=== PATIENT | female | born 1965 | race Caucasian/White ===

== ENCOUNTER → 2024-04-03 | Outpatient (CLI) | payer BC, SELFPAY ==
[2024-04-03 16:29] LABS: Alanine Aminotransferase 38 U/L (10-49); Albumin, Serum 4.7 gm/dL (3.5-5.0); Albumin/Globulin Ratio 1.9 (1.2-2.2); Alkaline Phosphatase 131 U/L (46-116); Anion Gap 7 (7-16); Aspartate Amino Transferase 41 U/L (0-34); BUN/Creatinine Ratio 28 Ratio (12-20); Bilirubin,Total 0.5 mg/dL (0.3-1.2); Blood Urea Nitrogen 22 mg/dL (9-23); Calcium 9.9 mg/dL (8.3-10.6); Calcium (Corrected) 9.9 mg/dL (8.5-10.1); Carbon Dioxide 28.4 mMol/L (20.0-31.0); Cardiac Risk Estimate 4.5 RATIO (3.7-5.6); Chloride 103 mMol/L (98-107); Cholesterol 157 mg/dL (132-200); Creatinine (Component) 0.8 mg/dL (0.6-1.3); Globulin 2.5 gm/dL (2.3-3.5); Glucose 124 mg/dL (74-106); HDL Cholesterol 35 mg/dL (40-60); LDL Cholesterol,Calculated 67 mg/dL (0-130); Osmolality,Calculated 279 (275-295); Potassium 4.2 mMol/L (3.4-5.1); Sodium 138 mMol/L (136-145); Total Protein 7.2 gm/dL (5.7-8.2); Triglycerides 274 mg/dL (30-150); eGFR > 60 See Note
[2024-04-03 16:36] LABS: Glucose Estimated Average 166 mg/dL (80-131); Hemoglobin A1C 7.4 % Hgb (4.8-6.0)
[2024-04-03 16:49] LABS: Creatinine MALB Rnd Ur 89 mg/dL (30-125); Microalbumin, Random Urine < 3 mg/L (0-300)
== END | disposition home or self-care (01) ==
LOC: COPL 14:02
PROVIDERS: PCP Specialist; Referring Provider Specialist; Visit Provider Specialist
DX: E11.65 Type 2 diabetes mellitus with hyperglycemia (principal); E78.2 Mixed hyperlipidemia
CPT/HCPCS: 36415; 80053; 80061; 82043; 82570; 83036

== ENCOUNTER → 2024-08-21 | Outpatient (CLI) | payer BC, SELFPAY ==
[2024-08-21 13:34] LABS: Glucose Estimated Average 163 mg/dL (80-131); Hemoglobin A1C 7.3 % Hgb (4.8-6.0)
[2024-08-21 13:39] LABS: Creatinine MALB Rnd Ur 91 mg/dL (30-125); Microalbumin Creat Ratio 8 mg/gCrea (<30); Microalbumin, Random Urine 7 mg/L (0-300)
[2024-08-21 13:42] LABS: Alanine Aminotransferase 39 U/L (10-49); Albumin, Serum 4.8 gm/dL (3.5-5.0); Albumin/Globulin Ratio 1.8 (1.2-2.2); Alkaline Phosphatase 121 U/L (46-116); Anion Gap 9 (7-16); Aspartate Amino Transferase 32 U/L (0-34); BUN/Creatinine Ratio 29 Ratio (12-20); Bilirubin,Total 0.6 mg/dL (0.3-1.2); Blood Urea Nitrogen 23 mg/dL (9-23); Carbon Dioxide 28.1 mMol/L (20.0-31.0); Cardiac Risk Estimate 4.2 RATIO (3.7-5.6); Chloride 106 mMol/L (98-107); Cholesterol 185 mg/dL (132-200); Creatinine (Component) 0.8 mg/dL (0.6-1.3); Globulin 2.7 gm/dL (2.3-3.5); Glucose 127 mg/dL (74-106); HDL Cholesterol 44 mg/dL (40-60); LDL Cholesterol,Calculated 112 mg/dL (0-130); Osmolality,Calculated 290 (275-295); Potassium 4.5 mMol/L (3.4-5.1); Sodium 143 mMol/L (136-145); Thyroid Stimulating Hormone 11.74 uIU/mL (0.55-4.78); Total Protein 7.5 gm/dL (5.7-8.2); Triglycerides 144 mg/dL (30-150); eGFR > 60 See Note
[2024-08-21 16:01] LABS: RA Screen Negative (Negative)
== END | disposition home or self-care (01) ==
LOC: COPL 12:03
PROVIDERS: PCP Specialist; Referring Provider Specialist; Visit Provider Specialist
DX: E11.65 Type 2 diabetes mellitus with hyperglycemia (principal); E78.2 Mixed hyperlipidemia; T78.3XXS Angioneurotic edema, sequela
CPT/HCPCS: 36415; 80053; 80061; 82043; 82570; 83036; 84443; 86038; 86430

== ENCOUNTER → 2024-09-16 | Outpatient (CLI) | payer BC, SELFPAY ==
--- NOTE | 2024-09-16 15:30 | XR_ITS ---
Examination: Thyroid sonography complete TECHNIQUE: Grayscale sonographic images thyroid lobes Exam date and time: September 16, 2024 1532 hours INDICATIONS: Elevated TSH on laboratory examination August 21, 2024 FINDINGS: Right thyroid 4.7 cm Lower pole nodule 13 x 8 x 9 mm Left thyroid 4.2 cm Midpole nodule 6 x 4 x 6 mm, 13 x 9 x 10 mm Lower pole nodule 15 x 12 x 15 mm IMPRESSION: Bilateral thyroid nodules as above Consider ultrasound-guided fine-needle aspiration of the largest nodules in the lower right and left thyroid lobes
--- NOTE | 2024-09-16 15:43 | XR_ITS ---
Examination: Lumbar spine, 5 views Technique: Lumbar spine AP, lateral, coned lateral lower lumbar spine, bilateral obliques 5 views Exam date and time: September 16, 2024 at 1558 hours Comparison March 01, 2017 INDICATIONS: Low back pain radiating down the left leg beginning one month ago. FINDINGS: Mild diffuse facet arthropathy No lumbar fracture Mild lumbar spondylosis Mild disc narrowing L4-L5, L5-S1 IMPRESSION: Early degenerative disc disease L4-L5, L5-S1
[2024-09-16 17:46] LABS: Thyroid Stimulating Hormone 11.62 uIU/mL (0.55-4.78)
[2024-09-23 13:48] LABS: Thyroglobulin Antibodies 21 IU/mL (< OR = 1)
[2024-09-24 06:41] LABS: ANA Pattern NUCLEAR, HOMOGENEOUS; ANA Pattern NUCLEAR, NUCLEOLAR; ANA Pattern NUCLEAR, SPECKLED; ANA Screen, IFA POSITIVE (NEGATIVE); ANA Titer 1:40 titer; Thyroglobulin 42.1 ng/mL
== END | disposition home or self-care (01) ==
LOC: CDIM 15:12 → COPL 16:12
PROVIDERS: PCP Specialist; Referring Provider Specialist; Visit Provider Radiology Diagnostic Radiology
DX: M51.379 Other intervertebral disc degeneration, lumbosacral region without mention of lumbar back pain or lower extremity pain (principal); E04.1 Nontoxic single thyroid nodule; E03.8 Other specified hypothyroidism; E04.2 Nontoxic multinodular goiter
CPT/HCPCS: 36415; 72110; 76536; 84432; 84439; 84443; 84481; 86038; 86800

== ENCOUNTER → 2024-11-08 | Outpatient (CLI) | payer BC, SELFPAY ==
[2024-11-08 08:39] LABS: Free T4 (Free Thyroxine) 1.07 ng/dL (0.89-1.76)
== END | disposition home or self-care (01) ==
PROVIDERS: PCP Specialist; Referring Provider Specialist; Visit Provider Specialist
DX: E03.8 Other specified hypothyroidism (principal)
CPT/HCPCS: 36415; 84439; 84443; 84481

== ENCOUNTER → 2024-12-09 | Outpatient (CLI) | payer BC, SELFPAY ==
--- NOTE | 2024-12-09 07:37 | XR_ITS ---
Examination: Abdomen sonogram, complete Date and time of exam: December 01, 2024 0744 hours INDICATIONS: Abdominal distention beginning 3 months ago. Technique: Multiple real-time grayscale transabdominal sonographic images of the abdomen have been obtained. Findings: Normal gallbladder. Normal common bile duct 0.2 cm Pancreatic head 2.3 cm Aorta not enlarged. Liver 19.2 cm irregular contour, probable focal fatty sparing versus true mass adjacent to the gallbladder 40 mm Normal hepatopedal portal venous flow Patent IVC Right kidney 10.6 cm renal cortex 1.3 cm Left kidney 11.0 cm renal cortex 1.9 cm Spleen 10.3 cm IMPRESSION: 3.9 x 2.6 x 4.0 cm liver lesion, recommend CT abdomen pre and post contrast follow-up
[2024-12-09 08:32] LABS: Basophils # (Auto) 0.0 Thou/mm3 (0.0-0.2); Basophils % (Auto) 1 % (0-2.5); Eosinophils # (Auto) 0.2 Thou/mm3 (0.0-0.5); Eosinophils % (Auto) 3 % (0-10); Hematocrit 45.6 % (36.0-46.0); Hemoglobin 14.9 g/dL (12.0-16.0); Immature Granulocytes Auto 0.02 Thou/mm3 (0.00-0.00); Lymphocytes # (Auto) 2.3 Thou/mm3 (1.0-4.8); Lymphocytes % (Auto) 42 % (10-50); Mean Corpuscular HGB Conc 32.7 g/dl (31.0-37.0); Mean Corpuscular Hemoglobin 27.5 pg (25.0-35.0); Mean Corpuscular Volume 84 fL (80-100); Monocytes # (Auto) 0.6 Thou/mm3 (0.0-0.8); Monocytes % (Auto) 11 % (0-12); Neutrophils # (Auto) 2.4 Thou/mm3 (1.8-7.7); Neutrophils % (Auto) 43 % (37-80); Nucleated Red Blood Cell # 0.00 Thou/mm3 (0.00-0.00); Nucleated Red Blood Cell % 0 /100 WBC (0); Platelet Count 159 Thou/mm3 (140-440); RDW Standard Deviation 40.1 fL (36.4-46.3); Red Blood Count 5.42 Miln/mm3 (4.00-5.20); White Blood Count 5.5 Thou/mm3 (3.6-11.0)
[2024-12-09 08:56] LABS: Alanine Aminotransferase 27 U/L (10-49); Albumin, Serum 4.6 gm/dL (3.5-5.0); Albumin/Globulin Ratio 1.6 (1.2-2.2); Alkaline Phosphatase 108 U/L (46-116); Anion Gap 10 (7-16); Aspartate Amino Transferase 31 U/L (0-34); BUN/Creatinine Ratio 16 Ratio (12-20); Bilirubin,Total 0.6 mg/dL (0.3-1.2); Blood Urea Nitrogen 14 mg/dL (9-23); Calcium 9.5 mg/dL (8.3-10.6); Calcium (Corrected) 9.5 mg/dL (8.5-10.1); Carbon Dioxide 25.4 mMol/L (20.0-31.0); Cardiac Risk Estimate 4.5 RATIO (3.7-5.6); Chloride 106 mMol/L (98-107); Cholesterol 171 mg/dL (132-200); Creatinine (Component) 0.9 mg/dL (0.6-1.3); Free T3 2.8 pg/mL (2.3-4.2); Free T4 (Free Thyroxine) 1.05 ng/dL (0.89-1.76); Globulin 2.8 gm/dL (2.3-3.5); Glucose 201 mg/dL (74-106); HDL Cholesterol 38 mg/dL (40-60); LDL Cholesterol,Calculated 103 mg/dL (0-130); Lipase 82 U/L (12-53); Osmolality,Calculated 287 (275-295); Potassium 4.6 mMol/L (3.4-5.1); Sodium 141 mMol/L (136-145); Thyroid Stimulating Hormone 9.65 uIU/mL (0.55-4.78); Total Protein 7.4 gm/dL (5.7-8.2); Triglycerides 149 mg/dL (30-150); eGFR > 60 See Note
[2024-12-09 08:57] LABS: Glucose Estimated Average 197 mg/dL (80-131); Hemoglobin A1C 8.5 % Hgb (4.8-6.0)
[2024-12-09 09:37] LABS: Creatinine MALB Rnd Ur 95 mg/dL (30-125); Microalbumin, Random Urine < 3 mg/L (0-300)
[2024-12-11 17:52] LABS: Thyroglobulin Antibodies 16 IU/mL (< OR = 1)
[2024-12-12 06:33] LABS: Thyroglobulin 35.4 ng/mL
== END | disposition home or self-care (01) ==
LOC: CDIM 07:27 → COPL 08:02
PROVIDERS: PCP Specialist; Referring Provider Specialist; Visit Provider Specialist
DX: R14.0 Abdominal distension (gaseous) (principal); E03.9 Hypothyroidism, unspecified; E11.65 Type 2 diabetes mellitus with hyperglycemia; E78.2 Mixed hyperlipidemia; K76.9 Liver disease, unspecified
CPT/HCPCS: 36415; 76700; 80053; 80061; 82043; 82570; 83036; 83690; 84432; 84439; 84443; 84481; 85025; 86800

== ENCOUNTER → 2025-03-24 | Outpatient (CLI) | payer BC, SELFPAY ==
[2025-03-24 08:10] LABS: Misc Send Out* See Sep Rpt
[2025-03-24 09:00] LABS: Free T3 3.1 pg/mL (2.3-4.2); Free T4 (Free Thyroxine) 1.48 ng/dL (0.89-1.76); Thyroid Stimulating Hormone 2.44 uIU/mL (0.55-4.78)
[2025-03-27 06:40] LABS: (tTG) Ab, IgA <1.0 U/mL; (tTG) Ab, IgG <1.0 U/mL; C-Peptide* 3.65 ng/mL (0.80-3.85); T3,Total* 92 ng/dL (76-181); Thyroid Peroxidase Antibodies* 131 IU/mL (<9)
== END | disposition home or self-care (01) ==
LOC: COPL 07:35
PROVIDERS: PCP Specialist; Referring Provider Nurse Practitioner Family; Visit Provider Nurse Practitioner Family
DX: E11.65 Type 2 diabetes mellitus with hyperglycemia (principal); E03.9 Hypothyroidism, unspecified
CPT/HCPCS: 36415; 84439; 84443; 84480; 84481; 84681; 86337; 86341; 86364; 86376